=== PATIENT | male | born 1960 | race Caucasian/White ===

== ENCOUNTER 2021-05-29 07:09 | Day surgery (SDC) | payer BC ==
[2021-05-28 09:51] VITALS: BMI 27.7
[2021-05-29] MEDS ORDERED: Lidocaine 1% MPF 2 ML VIAL ONE (07:20)
[2021-05-29] MEDS ORDERED: Oxymetazoline HCl 0.05% ( 15 ML ) ONE (08:10)
[2021-05-29] MEDS ORDERED: Midazolam HCl 2 mg/2 ml Vial ONE (11:52)
[2021-05-29] MEDS ORDERED: Fentanyl 250 MCG/5 ML VIAL ONE (11:52)
[2021-05-29] MEDS ORDERED: Lidocaine 1% PF 5 ML VIAL ONE (11:52)
[2021-05-29] MEDS ORDERED: PROPOFOL 20 ML ONE ×2 (11:52→12:32)
[2021-05-29] MEDS ORDERED: Dexamethasone 20 MG/5 ML VIAL ONE (11:52)
[2021-05-29] MEDS ORDERED: Ondansetron PF 4 MG/2 ML Vial ONE (11:52)
[2021-05-29] MEDS ORDERED: Rocuronium Bromide 10 MG/ML (10ML VIAL) ONE (11:52)
[2021-05-29] MEDS ORDERED: EPINEPHrine 1 MG/ML AMP ONE (11:52)
[2021-05-29] MEDS ORDERED: Triamcinolone 40 MG/ML VIAL ONE (11:53)
[2021-05-29] MEDS ORDERED: SUGAMMADEX SODIUM 200 MG/2 ML VIAL ONE (11:54)
[2021-05-29] MEDS ORDERED: Mupirocin 2% Ointment 22 GM Tube ONE (12:10)
[2021-05-29] MEDS ORDERED: Lidocaine 1% w/Epinephrine 1:100K 20 ML VIAL ONE (12:10)
[2021-05-29] MEDS ORDERED: CEFAZOLIN 1 GM VIAL ONE (12:10)
[2021-05-29] MEDS ORDERED: Labetalol HCl 100 MG/20 ML VIAL ONE (12:57)
[2021-05-29] MEDS ORDERED: PHENYLEPHRINE-NS 100 MCG/ML 10 ML SYRINGE ONE (13:23)
[2021-05-29] MEDS ORDERED: hydrALAZINE 20 MG/ML VIAL ONE (15:07)
== END 2021-05-29 16:00 | disposition home or self-care (01) ==
LOC: CSHSDC 07:09
PROVIDERS: ATTEND Otolaryngology Otolaryngic Allergy
DX: J34.2 Deviated nasal septum (principal); J33.0 Polyp of nasal cavity; J34.3 Hypertrophy of nasal turbinates; J34.89 Other specified disorders of nose and nasal sinuses; J30.89 Other allergic rhinitis; J32.8 Other chronic sinusitis; Z79.899 Other long term (current) drug therapy; Z90.49 Acquired absence of other specified parts of digestive tract
CPT/HCPCS: 88304; J0171; J0360; J0690; J1100; J2250; J2405; J2704; J3010; J3301

== ENCOUNTER 2024-01-16 12:55 | Outpatient (CLI) | payer BC ==
[~2024-01-16 12:55] MED LIST: Iopamidol 300 61% 100 ML VIAL FS ONE
== END 2024-01-16 12:56 | disposition home or self-care (01) ==
LOC: CSHCT 12:55
PROVIDERS: ATTEND Family Medicine
DX: R05.3 Chronic cough (principal); R63.4 Abnormal weight loss; R91.1 Solitary pulmonary nodule; E04.1 Nontoxic single thyroid nodule
CPT/HCPCS: 71260; 82565; Q9967

== ENCOUNTER 2025-04-18 07:51 | Outpatient (CLI) | payer BC ==
[2025-04-18 08:47] LABS: Estimated GFR - POC 68.0
[2025-04-18] MEDS ORDERED: Iopamidol 300 61% 100 ML VIAL FS ONE (10:21)
== END 2025-04-18 07:52 | disposition home or self-care (01) ==
LOC: CSHCT 07:51
PROVIDERS: ATTEND Family Medicine
DX: J98.4 Other disorders of lung (principal); R91.1 Solitary pulmonary nodule
CPT/HCPCS: 36415; 71260; 82565; Q9967